=== PATIENT | male | born 1955 | race Caucasian/White ===

== ENCOUNTER 2018-09-19 06:43 | Day surgery (SDC) | payer OTHER | END 2018-09-19 12:55 | disposition home or self-care (01) | LOC: AMB-ENDOS 06:43 | DX: D12.2 Benign neoplasm of ascending colon (principal); D12.4 Benign neoplasm of descending colon; D12.5 Benign neoplasm of sigmoid colon; D12.3 Benign neoplasm of transverse colon; D12.8 Benign neoplasm of rectum; D12.7 Benign neoplasm of rectosigmoid junction ==

== ENCOUNTER 2019-04-08 06:32 | Day surgery (SDC) | payer OTHER | END 2019-04-08 12:35 | disposition home or self-care (01) | LOC: AMB-ENDOS 06:32 | DX: D12.3 Benign neoplasm of transverse colon (principal); K63.5 Polyp of colon; K57.30 Diverticulosis of large intestine without perforation or abscess without bleeding ==

== ENCOUNTER 2019-05-22 08:45 | Inpatient (IN) | payer OTHER ==
[~2019-05-22] VITALS: Ht 170.2 cm; Wt 78.9 kg
[2019-05-22] MEDS ORDERED: ATENOLOL50 MG PO (10:41)
[2019-05-22] MEDS ORDERED: [UNRECOGNIZED DRUG - OTHER] PO (10:42)
[2019-05-22] MEDS ORDERED: FORTAMET1000 MG PO (10:43)
[2019-05-22] MEDS ORDERED: [UNRECOGNIZED DRUG - OTHER] PO (10:43)
[2019-05-22] MEDS ORDERED: AMARYL PO (10:44)
[2019-05-22] MEDS ORDERED: NORVASC PO (10:45)
[2019-06-03] MEDS ORDERED: GLIMEPIRIDE2 MG PO (08:18)
[2019-06-03] MEDS ORDERED: CAPTOPRIL50 MG PO (08:19)
[2019-06-03] MEDS ORDERED: FENOFIBRATE160 MG PO (08:19)
[2019-06-03] MEDS ORDERED: NORVASC2.5 MG PO (08:19)
[2019-06-05] MEDS ORDERED: OXYC1TAB9 PO (13:19)
[2019-06-05] MEDS ORDERED: INTESTINEX680 M1 PO (13:20)
== END 2019-06-05 15:15 | disposition home or self-care (01) | DRG 334 ==
LOC: SURG 08:45 → SURH 06-02 21:27
PROVIDERS: ADMIT Surgery
PROC: 07TC4ZZ Resection of Pelvis Lymphatic, Percutaneous Endoscopic Approach (ICD-10-PCS; 2019-06-02)
PROC: 0DTP4ZZ Resection of Rectum, Percutaneous Endoscopic Approach (ICD-10-PCS; principal; 2019-06-02 07:00)
DX: C20 Malignant neoplasm of rectum (principal); R59.0 Localized enlarged lymph nodes; I10 Essential (primary) hypertension

== ENCOUNTER 2019-08-04 06:30 | Day surgery (SDC) | payer OTHER ==
[~2019-08-04 06:30] MED LIST: AMARYL PO; ATENOLOL50 MG PO; CAPTOPRIL50 MG PO; FENOFIBRATE160 MG PO; FORTAMET1000 MG PO; GLIMEPIRIDE2 MG PO; INTESTINEX680 M1 PO; NORVASC PO; NORVASC2.5 MG PO; OXYC1TAB9 PO; [UNRECOGNIZED DRUG - OTHER] PO; [UNRECOGNIZED DRUG - OTHER] PO
[2019-08-04] MEDS ORDERED: ULTRACET PO (08:10)
== END 2019-08-04 10:50 | disposition home or self-care (01) ==
LOC: CIR.AMB 06:30
DX: C20 Malignant neoplasm of rectum (principal)
CPT/HCPCS: 36561; C1751

== ENCOUNTER 2020-06-19 06:00 | Day surgery (SDC) | payer OTHER ==
[~2020-06-19 06:00] MED LIST changes: +ULTRACET PO
== END 2020-06-19 09:10 | disposition home or self-care (01) ==
LOC: AMB-ENDOS 06:00
PROVIDERS: ATTEND Surgery
DX: K63.5 Polyp of colon (principal); Z93.3 Colostomy status; Z20.828 Contact with and (suspected) exposure to other viral communicable diseases